=== PATIENT | female | born 2000 | race American Indian/Alaskan Native ===

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

== ENCOUNTER 2020-12-03 15:45 | Emergency (ER) | payer SELFPAY ==
[2020-12-03] MEDS ORDERED: IBUPROFEN 600 MG TAB PO ONE (16:17)
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
[2020-12-03] MEDS ORDERED: SODIUM CHLORIDE 0.9% 1000 ML 1,000 ML IV ONE (16:21)
[2020-12-03 17:30] LABS: BUN/Creatinine Ratio 12; Blood Urea Nitrogen 11 mg/dL (7-17); Calcium 8.4 mg/dL (8.4-10.2); Hemolysis Index 6
[2020-12-03] MEDS ORDERED: ACETAMINOPHEN 500 MG TAB PO STA (17:33)
[2020-12-03 17:34] LABS: Bacteria,Urine 1+ /HPF (Negative); Bilirubin,Urine NEG (Negative); Blood,Urine SM (Negative); Color,Urine Yellow (Yellow); Mucus,Urine 3+ /HPF; Urobilinogen,Urine < 2.0 mg/dL (<2.0)
[2020-12-03 17:34] LABS: Basophils # (Auto) 0.1 K/mm3 (0.0-0.1); Basophils % (Auto) 0.9 % (0.0-1.8); Eosinophils % (Auto) 0.1 % (0.0-4.3); Hematocrit 33.7 % (30.3-42.9); Lymphocytes # (Auto) 1.1 K/mm3 (1.2-5.4); Lymphocytes % (Auto) 14.5 % (13.4-35.0); Mean Corpuscular HGB Conc 33 % (30-34); Mean Corpuscular Volume 84 fl (79-97); Monocytes # (Auto) 1.2 K/mm3 (0.0-0.8); Monocytes % (Auto) 15.5 % (0.0-7.3); Platelet Count 326 K/mm3 (140-440); Red Blood Count 4.02 M/mm3 (3.65-5.03); Red Cell Distribution Width 15.1 % (13.2-15.2)
[2020-12-03 17:39] LABS: HCG Qualitative,Urine Negative (Negative)
--- NOTE | 2020-12-03 17:40 | Emergency Department Report ---
ED General Adult HPI - General Chief complaint: Urogenital-Female Stated complaint: VAGINAL PAINS Time Seen by Provider: 12/03/20 16:07 Source: patient Mode of arrival: Ambulatory Limitations: No Limitations - History of Present Illness Initial comments: 20-year-old -[place] female patient presents with complaints of painful vaginal lesions and vaginal discharge x4 days. She denies any dyspareunia, vaginal bleeding, dysuria/hematuria/urinary frequency, or fever/chills/sweats. She does report lower abdominal pain. No past medical history per patient. She is currently sexually active. No history of genital herpes per -: Sudden Severity scale (0 -10): 10 - Related Data Previous Rx's Medication Instructions Recorded Last Taken Type EPINEPHrine [Epipen 2-Russell] 0.3 mg IM QDAY PRN #2 pack 11/21/17 Unknown Rx Prednisone [predniSONE 5 mg (6-Day 5 mg PO .TAPER #1 tab.ds.pk 11/21/17 Unknown Rx Pack, 21 Tabs)] diphenhydrAMINE [Benadryl CAP] 25 mg PO Q8HR PRN #30 capsule 11/21/17 Unknown Rx Cyclobenzaprine HCl [Flexeril 5 MG 5 mg PO Q8H PRN #15 tab 10/21/19 Unknown Rx TAB] Ibuprofen [Motrin] 600 mg PO Q8H PRN #30 tablet 10/21/19 Unknown Rx Doxycycline Monohydrate 100 mg PO BID 14 Days #28 capsule 12/03/20 Unknown Rx Valacyclovir HCl [Valacyclovir] 1,000 mg PO BID 10 Days #20 tablet 12/03/20 Unknown Rx Allergies Allergy/AdvReac Type Severity Reaction Status Date / Time No Known Allergies Allergy Unverified 11/21/17 04:15 ED Review of Systems ROS: Stated complaint: VAGINAL PAINS Other details as noted in HPI Constitutional: denies: chills, diaphoresis, fever, malaise, weakness Respiratory: denies: cough, shortness of breath Cardiovascular: denies: chest pain Gastrointestinal: abdominal pain. denies: nausea, vomiting, diarrhea Genitourinary: discharge. denies: urgency, dysuria, frequency, hematuria, abnormal menses, dyspareunia Skin: lesions Neurological: denies: headache Hematological/Lymphatic: denies: swollen glands ED Past Medical Hx - Past Medical History Previous Medical History?: No - Surgical History Past Surgical History?: No - Social History Smoking Status: Never Smoker Substance Use Type: None - Medications Home Medications: Home Medications Medication Instructions Recorded Confirmed Last Taken Type EPINEPHrine [Epipen 2-Russell] 0.3 mg IM QDAY PRN #2 pack 11/21/17 Unknown Rx Prednisone [predniSONE 5 mg (6-Day 5 mg PO .TAPER #1 tab.ds.pk 11/21/17 Unknown Rx Pack, 21 Tabs)] diphenhydrAMINE [Benadryl CAP] 25 mg PO Q8HR PRN #30 capsule 11/21/17 Unknown Rx Cyclobenzaprine HCl [Flexeril 5 MG 5 mg PO Q8H PRN #15 tab 10/21/19 Unknown Rx TAB] Ibuprofen [Motrin] 600 mg PO Q8H PRN #30 tablet 10/21/19 Unknown Rx Doxycycline Monohydrate 100 mg PO BID 14 Days #28 capsule 12/03/20 Unknown Rx Valacyclovir HCl [Valacyclovir] 1,000 mg PO BID 10 Days #20 tablet 12/03/20 Unknown Rx ED Physical Exam - General Limitations: No Limitations General appearance: alert, in no apparent distress - Head Head exam: Present: atraumatic, normocephalic - Eye Eye exam: Present: normal appearance. Absent: scleral icterus - Neck Neck exam: Present: normal inspection - Respiratory Respiratory exam: Present: normal lung sounds bilaterally. Absent: respiratory distress - Cardiovascular Cardiovascular Exam: Present: regular rate, normal rhythm - GI/Abdominal GI/Abdominal exam: Present: soft, tenderness (Mild suprapubic), normal bowel sounds. Absent: distended, guarding, rebound, rigid - External exam: Present: lesions (Herpetic lesions noted to the outer area of the vaginal canal and labia minora). Absent: erythema, swelling, bleeding Speculum exam: Present: vaginal discharge, cervical discharge, other (Cervix is friable). Absent: vaginal bleeding Bi-manual exam: Present: cervical motion tendernes - Extremities Exam Extremities exam: Present: full ROM - Back Exam Back exam: Absent: CVA tenderness (R), CVA tenderness (L) - Neurological Exam Neurological exam: Present: alert, oriented X3 - Psychiatric Psychiatric exam: Present: normal affect, normal mood ED Course Vital Signs 12/03/20 12/03/20 12/03/20 16:14 18:10 19:11 Temperature 101.7 F H 98.3 F Pulse Rate 123 H 92 H Respiratory 18 16 15 Rate Blood Pressure 118/68 Blood Pressure 121/81 [Right] O2 Sat by Pulse 98 99 Oximetry ED Medical Decision Making - Lab Data Result diagrams: 12/03/20 16:41 12/03/20 16:41 Lab Results 12/03/20 12/03/20 12/03/20 Range/Units 16:41 16:41 17:05 WBC 7.4 (4.5-11.0) K/mm3 RBC 4.02 (3.65-5.03) M/mm3 Hgb 11.0 (10.1-14.3) gm/dl Hct 33.7 (30.3-42.9) % MCV 84 (79-97) fl MCH 28 (28-32) pg MCHC 33 (30-34) % RDW 15.1 (13.2-15.2) % Plt Count 326 (140-440) K/mm3 Lymph % (Auto) 14.5 (13.4-35.0) % [place] % (Auto) 15.5 H (0.0-7.3) % Eos % (Auto) 0.1 (0.0-4.3) % Baso % (Auto) 0.9 (0.0-1.8) % Lymph # (Auto) 1.1 L (1.2-5.4) K/mm3 [place] # (Auto) 1.2 H (0.0-0.8) K/mm3 Eos # (Auto) 0.0 (0.0-0.4) K/mm3 Baso # (Auto) 0.1 (0.0-0.1) K/mm3 Seg Neutrophils % 69.0 (40.0-70.0) % Seg Neutrophils # 5.1 (1.8-7.7) K/mm3 Sodium 135 L (137-145) mmol/L Potassium 3.2 L (3.6-5.0) mmol/L Chloride 101.7 (98-107) mmol/L Carbon Dioxide 25 (22-30) mmol/L Anion Gap 12 mmol/L BUN 11 (7-17) mg/dL Creatinine 0.9 (0.6-1.2) mg/dL Estimated GFR > 60 ml/min BUN/Creatinine Ratio 12 % Glucose 99 (65-100) mg/dL Lactic Acid (0.7-2.0) mmol/L Calcium 8.4 (8.4-10.2) mg/dL Urine Color Yellow (Yellow) Urine Turbidity Clear (Clear) Urine pH 5.0 (5.0-7.0) Ur Specific Max 1.021 (1.003-1.030) Urine Protein 100 mg/dl (Negative) mg/dL Urine Glucose (UA) Neg (Negative) mg/dL Urine Ketones Tr (Negative) mg/dL Urine Blood Sm (Negative) Urine Nitrite Neg (Negative) Urine Bilirubin Neg (Negative) Urine Urobilinogen < 2.0 (<2.0) mg/dL Ur Leukocyte Esterase Mod (Negative) Urine WBC (Auto) 39.0 H (0.0-6.0) /HPF Urine RBC (Auto) 12.0 (0.0-6.0) /HPF U Epithel Cells (Auto) 1.0 (0-13.0) /HPF Urine Bacteria (Auto) 1+ (Negative) /HPF Urine Mucus 3+ /HPF Urine HCG, Qual Negative (Negative) 12/03/20 Range/Units 17:05 WBC (4.5-11.0) K/mm3 RBC (3.65-5.03) M/mm3 Hgb (10.1-14.3) gm/dl Hct (30.3-42.9) % MCV (79-97) fl MCH (28-32) pg MCHC (30-34) % RDW (13.2-15.2) % Plt Count (140-440) K/mm3 Lymph % (Auto) (13.4-35.0) % [place] % (Auto) (0.0-7.3) % Eos % (Auto) (0.0-4.3) % Baso % (Auto) (0.0-1.8) % Lymph # (Auto) (1.2-5.4) K/mm3 [place] # (Auto) (0.0-0.8) K/mm3 Eos # (Auto) (0.0-0.4) K/mm3 Baso # (Auto) (0.0-0.1) K/mm3 Seg Neutrophils % (40.0-70.0) % Seg Neutrophils # (1.8-7.7) K/mm3 Sodium (137-145) mmol/L Potassium (3.6-5.0) mmol/L Chloride (98-107) mmol/L Carbon Dioxide (22-30) mmol/L Anion Gap mmol/L BUN (7-17) mg/dL Creatinine (0.6-1.2) mg/dL Estimated GFR ml/min BUN/Creatinine Ratio % Glucose (65-100) mg/dL Lactic Acid 0.70 (0.7-2.0) mmol/L Calcium (8.4-10.2) mg/dL Urine Color (Yellow) Urine Turbidity (Clear) Urine pH (5.0-7.0) Ur Specific Max (1.003-1.030) Urine Protein (Negative) mg/dL Urine Glucose (UA) (Negative) mg/dL Urine Ketones (Negative) mg/dL Urine Blood (Negative) Urine Nitrite (Negative) Urine Bilirubin (Negative) Urine Urobilinogen (<2.0) mg/dL Ur Leukocyte Esterase (Negative) Urine WBC (Auto) (0.0-6.0) /HPF Urine RBC (Auto) (0.0-6.0) /HPF U Epithel Cells (Auto) (0-13.0) /HPF Urine Bacteria (Auto) (Negative) /HPF Urine Mucus /HPF Urine HCG, Qual (Negative) - Medical Decision Making 20-year-old -[place] female patient presents with complaints of painful vaginal lesions and vaginal discharge x4 days. She denies any dyspareunia, vaginal bleeding, dysuria/hematuria/urinary frequency, or fever/chills/sweats. She does report lower abdominal pain. No past medical history per patient. She is currently sexually active. No history of genital herpes per Significant greenish vaginal discharge noted on exam with CMT. Patient presented febrile and tachycardic. Lactic acid is normal. Vitals are normal after Tylenol ibuprofen. Wet prep negative for trichomoniasis, however on exam patient had copious green discharge and a friable cervix. Therefore will cover for trichomoniasis with Flagyl 2 g p.o. Will treat for PID with Rocephin and doxycycline. Herpetic lesions also noted on exam. Prescription for valacyclovir given. Patient informed to refrain from any sexual activity for 2 to 3 weeks and to ensure her partner is tested and treated. She is well-appeari ng and stable for discharge home. Patient follow-up with primary care doctor in 3 days. Discussed signs and symptoms that should prompt immediate return to the emergency department in detail with patient who verbalizes understanding. Critical care attestation.: If time is entered above; I have spent that time in minutes in the direct care of this critically ill patient, excluding procedure time. ED Disposition Clinical Impression: PID (acute pelvic inflammatory disease), Trichomonal cervicitis, Genital herpes Disposition: TO HOME OR SELFCARE Is pt being admited?: No Condition: Stable Instructions: Genital Herpes, Trichomoniasis, Pelvic Inflammatory Disease Prescriptions: Doxycycline Monohydrate 100 mg PO BID 14 Days #28 capsule Valacyclovir HCl [Valacyclovir] 1,000 mg PO BID 10 Days #20 tablet Forms: STI Treatment and Prevention
[2020-12-03] MEDS ORDERED: LIDOCAINE-MPF (1%) 10 MG/1 ML VIAL 5 ML INFILTRATI ONE (18:40)
[2020-12-03] MEDS ORDERED: POTASSIUM CHLORIDE ER 20 MEQ TAB PO ONE (18:48)
[2020-12-03 19:15] VITALS: BP 118/68
[2020-12-03] MEDS ORDERED: metroNIDAZOLE 500 MG TAB PO ONE (19:15)
== END 2020-12-03 19:54 | disposition home or self-care (01) ==
LOC: ED 15:45
DX: N73.0 Acute parametritis and pelvic cellulitis (principal); A59.09 Other urogenital trichomoniasis; A60.00 Herpesviral infection of urogenital system, unspecified; Z79.899 Other long term (current) drug therapy
CPT/HCPCS: 36415; 80048; 81001; 81025; 82140; 85025; 87040; 87086; 87210; 87591; 96360; 96372; 99284; J0696; J7030

== ENCOUNTER 2021-01-20 17:45 | Emergency (ER) | payer SELFPAY ==
[2021-01-20] MEDS ORDERED: DICYCLOMINE 20 MG/2 ML INJ IM ONE (22:48)
[2021-01-20] MEDS ORDERED: FAMOTIDINE 20 MG TAB PO ONE (22:48)
[2021-01-20] MEDS ORDERED: ACETAMINOPHEN 500 MG TAB PO ONE (22:48)
[2021-01-20] MEDS ORDERED: ONDANSETRON 4 MG ODT TAB PO ONE (22:48)
[2021-01-20 23:05] LABS: Bacteria,Urine 1+ /HPF (Negative); Bilirubin,Urine SM (Negative); Blood,Urine NEG (Negative); Color,Urine Amber (Yellow); Hyaline Casts,Urine 3 /LPF; Mucus,Urine 3+ /HPF
--- NOTE | 2021-01-20 23:19 | Emergency Department Report ---
ED N/V/D HPI - General Chief complaint: Nausea/Vomiting/Diarrhea Stated complaint: NAUSEA, ABD PAIN, DRY MOUTH, WEAK Source: patient Mode of arrival: Ambulatory Limitations: No Limitations - History of Present Illness Initial comments: Patient is a nulliparous 20-year-old -[place] female with no past medical history presents to the ED with complaint of acute onset persistent nausea and vomiting, diffuse abdominal pain lack of appetite and generalized weakness for the last 2 days, worse in the last 12 hours. Patient states that she has not been able to keep anything down in the last 8 hours. Patient states that no one else at home is had similar symptoms. Patient denies diarrhea, dysuria, urinary frequency and urgency, vaginal bleeding, vaginal discharge, chest pain or shortness of breath, fever, chills, sore throat, headache, dizziness, syncope, seizures, back pain or cough. MD complaint: nausea, vomiting, abdominal pain -: Sudden, days(s) (2) Description of Vomiting: food contents, bilious Associated Abdominal Pain: Yes (Mildly diffuse abdominal pain) Location: diffuse Radiation: none Severity: moderate Pain Scale: 5 Quality: cramping, sharp Consistency: intermittent Improves with: none Worsens with: eating, vomiting Context: possible food poisoning Associated Symptoms: denies other symptoms, myalgias, loss of appetite, malaise, nausea/vomiting. denies: chest pain, cough, diaphoresis, fever/chills, headaches, rash, dysuria, shortness of breath, syncope, weakness - Related Data Previous Rx's Medication Instructions Recorded Last Taken Type EPINEPHrine [Epipen 2-Russell] 0.3 mg IM QDAY PRN #2 pack 11/21/17 Unknown Rx Prednisone [predniSONE 5 mg (6-Day 5 mg PO .TAPER #1 tab.ds.pk 11/21/17 Unknown Rx Pack, 21 Tabs)] diphenhydrAMINE [Benadryl CAP] 25 mg PO Q8HR PRN #30 capsule 11/21/17 Unknown Rx Cyclobenzaprine HCl [Flexeril 5 MG 5 mg PO Q8H PRN #15 tab 10/21/19 Unknown Rx TAB] Doxycycline Monohydrate 100 mg PO BID 14 Days #28 capsule 12/03/20 Unknown Rx Valacyclovir HCl [Valacyclovir] 1,000 mg PO BID 10 Days #20 tablet 06/24/21 Unknown Rx Dicyclomine [Bentyl] 20 mg PO Q6H PRN #24 tablet 01/21/21 Unknown Rx Famotidine [Pepcid] 20 mg PO BID #60 tablet 01/21/21 Unknown Rx Ibuprofen [Motrin 600 MG tab] 600 mg PO Q8H PRN #20 tablet 01/21/21 Unknown Rx Ondansetron [Zofran Odt] 4 mg PO Q6HR PRN #20 tab.rapdis 01/21/21 Unknown Rx Allergies Allergy/AdvReac Type Severity Reaction Status Date / Time No Known Allergies Allergy Verified 01/20/21 18:53 ED Review of Systems ROS: Stated complaint: NAUSEA, ABD PAIN, DRY MOUTH, WEAK Other details as noted in HPI Constitutional: malaise. denies: chills, fever Eyes: denies: eye pain, eye discharge, vision change ENT: denies: ear pain, throat pain Respiratory: denies: cough, shortness of breath, wheezing Cardiovascular: denies: chest pain, palpitations Endocrine: no symptoms reported Gastrointestinal: abdominal pain, nausea, vomiting. denies: diarrhea Genitourinary: denies: urgency, dysuria, discharge, abnormal menses, dyspareunia Musculoskeletal: denies: back pain, joint swelling, arthralgia Skin: denies: rash, lesions Neurological: denies: headache, weakness, paresthesias Psychiatric: denies: anxiety, depression Hematological/Lymphatic: denies: easy bleeding, easy bruising ED Past Medical Hx - Past Medical History Previous Medical History?: No - Surgical History Past Surgical History?: No - Social History Smoking Status: Never Smoker Substance Use Type: None - Medications Home Medications: Home Medications Medication Instructions Recorded Confirmed Last Taken Type EPINEPHrine [Epipen 2-Russell] 0.3 mg IM QDAY PRN #2 pack 11/21/17 Unknown Rx Prednisone [predniSONE 5 mg (6-Day 5 mg PO .TAPER #1 tab.ds.pk 11/21/17 Unknown Rx Pack, 21 Tabs)] diphenhydrAMINE [Benadryl CAP] 25 mg PO Q8HR PRN #30 capsule 11/21/17 Unknown Rx Cyclobenzaprine HCl [Flexeril 5 MG 5 mg PO Q8H PRN #15 tab 10/21/19 Unknown Rx TAB] Doxycycline Monohydrate 100 mg PO BID 14 Days #28 capsule 12/03/20 Unknown Rx Valacyclovir HCl [Valacyclovir] 1,000 mg PO BID 10 Days #20 tablet 12/03/20 Unknown Rx Dicyclomine [Bentyl] 20 mg PO Q6H PRN #24 tablet 01/21/21 Unknown Rx Famotidine [Pepcid] 20 mg PO BID #60 tablet 01/21/21 Unknown Rx Ibuprofen [Motrin 600 MG tab] 600 mg PO Q8H PRN #20 tablet 01/21/21 Unknown Rx Ondansetron [Zofran Odt] 4 mg PO Q6HR PRN #20 tab.rapdis 01/21/21 Unknown Rx ED Physical Exam - General Limitations: No Limitations General appearance: alert, in no apparent distress - Head Head exam: Present: atraumatic, normocephalic, normal inspection - Eye Eye exam: Present: normal appearance, PERRL, EOMI Pupils: Present: normal accommodation - ENT ENT exam: Present: normal exam, normal orophraynx, mucous membranes moist, TM's normal bilaterally, normal external ear exam - Neck Neck exam: Present: normal inspection, full ROM - Respiratory Respiratory exam: Present: normal lung sounds bilaterally. Absent: respiratory distress, wheezes, rales, rhonchi, chest wall tenderness, accessory muscle use, decreased breath sounds - Cardiovascular Cardiovascular Exam: Present: regular rate, normal rhythm, normal heart sounds. Absent: systolic murmur, diastolic murmur, rubs, gallop - GI/Abdominal GI/Abdominal exam: Present: soft, normal bowel sounds. Absent: distended, tenderness, guarding, rebound, hyperactive bowel sounds, hypoactive bowel sounds, organomegaly, mass - Extremities Exam Extremities exam: Present: normal inspection, full ROM, normal capillary refill - Back Exam Back exam: Present: normal inspection, full ROM. Absent: tenderness, CVA tenderness (R), CVA tenderness (L), muscle spasm, paraspinal tenderness, vertebral tenderness - Neurological Exam Neurological exam: Present: alert, oriented X3, CN II-XII intact, normal gait, reflexes normal - Psychiatric Psychiatric exam: Present: normal affect, normal mood - Skin Skin exam: Present: warm, dry, intact, normal color. Absent: rash ED Course Vital Signs 01/20/21 01/20/21 18:52 23:22 Temperature 98.3 F Pulse Rate 99 H Respiratory 18 20 Rate Blood Pressure 115/80 [Right] O2 Sat by Pulse 99 Oximetry ED Medical Decision Making - Lab Data Result diagrams: 01/20/21 23:09 01/20/21 23:09 - Medical Decision Making This is a nulliparous 20-year-old -[place] female with no past medical history presents to the ED with complaint of acute onset persistent nausea and vomiting, diffuse abdominal pain lack of appetite and generalized weakness for the last 2 days, worse in the last 12 hours. Patient states that she has not been able to keep anything down in the last 8 hours. Patient states that no one else at home is had similar symptoms. In the ED, patient is alert and oriented x3 and is not in any distress. Patient is hemodynamically stable. Patient was treated for nausea and vomiting, also given antacids and pain medications. Lab test results were reviewed and are all nonactionable except for mild hypokalemia of 3.3 mmol/L, and for which the patient was treated with oral potassium chloride 40 mEq p.o. x1. On reevaluation, patient felt better, patient passed oral fluid challenge in the ED, the patient's pain, nausea and vomiting were controlled medications. Patient was discharged home on medications for pain and antiemetics and advised to maintain a clear liquid diet for 12 to 24 hours, while taking medications as prescribed. Patient was advised to follow-up with her primary care physician in 5 to 7 days for reevaluation or return to the ED immediately if symptoms get worse. - Differential Diagnosis Viral gastroenteritis; UTI; GERD; ovarian cyst; Critical care attestation.: If time is entered above; I have spent that time in minutes in the direct care of this critically ill patient, excluding procedure time. ED Disposition Clinical Impression: Abdominal pain, generalized, Nausea and vomiting in adult patient, Viral gastroenteritis Disposition: DC-01 TO HOME OR SELFCARE Is pt being admited?: No Does the pt Need Aspirin: No Condition: Stable Instructions: Viral Gastroenteritis, Adult, [id number], Abdominal Pain, Adult, [id number], Nausea and Vomiting, Adult, [id number] Additional Instructions: All lab test results were reviewed and are all nonactionable. Therefore maintain a clear liquid diet for 1224 hrs., take medications with food, drink plenty of fluids and follow-up with your primary care physician in 5 to 7 days for reevaluation or return to the ED immediately if symptoms get worse. Prescriptions: Dicyclomine [Bentyl] 20 mg PO Q6H PRN #24 tablet PRN Reason: Abdominal pain Ibuprofen [Motrin 600 MG tab] 600 mg PO Q8H PRN #20 tablet PRN Reason: Pain Famotidine [Pepcid] 20 mg PO BID #60 tablet Ondansetron [Zofran Odt] 4 mg PO Q6HR PRN #20 tab.rapdis PRN Reason: Nausea Referrals: [facility] [Provider Group] - 3-5 Days Forms: Work/School Release Form(ED) Time of Disposition: 00:47 Print Language: MALTESE
[2021-01-20 23:41] LABS: Ictotest,Urine Negative (Negative)
[2021-01-20 23:58] LABS: Basophils % (Auto) 0.4 % (0.0-1.8); Eosinophils % (Auto) 0.6 % (0.0-4.3); Hematocrit 34.2 % (30.3-42.9); Hemoglobin 11.2 gm/dl (10.1-14.3); Lymphocytes % (Auto) 17.9 % (13.4-35.0); Mean Corpuscular HGB Conc 33 % (30-34); Mean Corpuscular Volume 84 fl (79-97); Monocytes # (Auto) 0.6 K/mm3 (0.0-0.8); Monocytes % (Auto) 10.4 % (0.0-7.3); Platelet Count 339 K/mm3 (140-440); Red Blood Count 4.06 M/mm3 (3.65-5.03); Red Cell Distribution Width 14.8 % (13.2-15.2)
[2021-01-21 00:19] LABS: Alanine Aminotransferase 6 units/L (7-56); Albumin 4.1 g/dL (3.9-5); BUN/Creatinine Ratio 13; Blood Urea Nitrogen 12 mg/dL (7-17); Calcium 8.6 mg/dL (8.4-10.2); Hemolysis Index 0
[2021-01-21] MEDS ORDERED: POTASSIUM CHLORIDE ER 20 MEQ TAB PO ONE (00:36)
[2021-01-21] MEDS ORDERED: KETOROLAC 30 MG/1 ML INJ IM ONE (00:46)
[2021-01-21] MEDS ORDERED: PROMETHAZINE 25 MG TAB PO ONE (00:56)
[2021-01-21 02:51] VITALS: BP 115/67
== END 2021-01-21 03:00 | disposition home or self-care (01) ==
LOC: ED 17:45
DX: A08.4 Viral intestinal infection, unspecified (principal); R11.2 Nausea with vomiting, unspecified; R10.84 Generalized abdominal pain; Z79.899 Other long term (current) drug therapy
CPT/HCPCS: 36415; 80053; 81001; 83690; 84703; 85025; 99283; J0500; J1885; Q0169; Q0162

== ENCOUNTER 2021-03-15 12:40 | Emergency (ER) | payer SELFPAY ==
[2021-03-15 13:56] LABS: Basophils # (Auto) 0.1 K/mm3 (0.0-0.1); Basophils % (Auto) 1.1 % (0.0-1.8); Eosinophils # (Auto) 0.2 K/mm3 (0.0-0.4); Eosinophils % (Auto) 2.7 % (0.0-4.3); Hematocrit 32.3 % (30.3-42.9); Hemoglobin 10.4 gm/dl (10.1-14.3); Lymphocytes # (Auto) 1.2 K/mm3 (1.2-5.4); Lymphocytes % (Auto) 14.4 % (13.4-35.0); Mean Corpuscular HGB Conc 32 % (30-34); Mean Corpuscular Volume 83 fl (79-97); Monocytes # (Auto) 0.6 K/mm3 (0.0-0.8); Monocytes % (Auto) 7.1 % (0.0-7.3); Platelet Count 393 K/mm3 (140-440); Red Cell Distribution Width 15.4 % (13.2-15.2)
[2021-03-15 14:06] LABS: Alanine Aminotransferase 5 units/L (7-56); Albumin 3.9 g/dL (3.9-5); Blood Urea Nitrogen 8 mg/dL (7-17); Hemolysis Index 0
[2021-03-15 14:31] LABS: BUN/Creatinine Ratio 11
--- NOTE | 2021-03-15 15:04 | Ultrasound Report ---
TRANSABDOMINAL AND TRANSVAGINAL OB PELVIC ULTRASOUND INDICATION / CLINICAL INFORMATION: Pelvic pain and vaginal spotting. COMPARISON: None available. FINDINGS: Transabdominal: The uterus measures approximately 9.9 x 5.9 x 6.9 cm. There is an intrauterine gestat ional sac with a pole measuring 6 weeks 1 day. The heart rate is under 14 bpm. I see no e vidence of implantation hemorrhage. The left ovary measures 4.5 x 2.4 x 4.6 cm. The right ovary measu res 3.7 1.8 x 3.8 cm. No free fluid is seen. Transvaginal: There is an intrauterine gestational sac. There is a pole measuring 6 weeks 3 day s by crown-rump length. The heart rate is 116 bpm. There is no evidence of implantation hemorrh age. The left ovary measures 4.5 x 1.9 x 3.5 cm and contains a 1.5 cm corpus luteal cyst. The right o vary measures 3.7 x 1.5 x 3.5 cm. There is normal blood flow to both ovaries on Doppler exam. There i s a mild amount of free fluid in the cul-de-sac. IMPRESSION: 1. Single viable 6 week 3 day intrauterine . 2. 1.5 cm corpus luteal cyst in the left ovary. 3. Small amount of free fluid in the cul-de-sac. No evidence of an extraovarian mass is seen to candace st ectopic . Signer Name: Zeferino Min MD Signed: 03/15/2021 3:00 PM Workstation Name: [email or web address]
--- NOTE | 2021-03-15 15:59 | Emergency Department Report ---
ED General Adult HPI - General Chief complaint: Abdominal Pain Stated complaint: DIZZINESS/ABD CRAMPS Time Seen by Provider: 03/15/21 12:56 Source: patient Mode of arrival: Ambulatory Limitations: No Limitations - History of Present Illness Initial comments: 20-year-old -[place] female patient presents with complaints of vaginal bleeding in starting this morning. Patient states she tested positive for about 2 weeks ago. She states she noticed a little blood upon wiping this morning. She denies any dysuria/hematuria/urinary frequency, dyspareunia, fever/chills/sweats, stool changes. She reports some mild abdominal cramping but denies any currently. She also denies dyspareunia or vaginal discharge. No prior medical history per patient. She states she is G1, . Patient has an appointment scheduled with her WORKDAY DIRECTOR on 03/29/2021. - Related Data Previous Rx's Medication Instructions Recorded Last Taken Type EPINEPHrine [Epipen 2-Russell] 0.3 mg IM QDAY PRN #2 pack 11/21/17 Unknown Rx Prednisone [predniSONE 5 mg (6-Day 5 mg PO .TAPER #1 tab.ds.pk 11/21/17 Unknown Rx Pack, 21 Tabs)] diphenhydrAMINE [Benadryl CAP] 25 mg PO Q8HR PRN #30 capsule 11/21/17 Unknown Rx Cyclobenzaprine HCl [Flexeril 5 MG 5 mg PO Q8H PRN #15 tab 10/21/19 Unknown Rx TAB] Doxycycline Monohydrate 100 mg PO BID 14 Days #28 capsule 12/03/20 Unknown Rx Valacyclovir HCl [Valacyclovir] 1,000 mg PO BID 10 Days #20 tablet 12/03/20 Unknown Rx Dicyclomine [Bentyl] 20 mg PO Q6H PRN #24 tablet 01/21/21 Unknown Rx Famotidine [Pepcid] 20 mg PO BID #60 tablet 01/21/21 Unknown Rx Ibuprofen [Motrin 600 MG tab] 600 mg PO Q8H PRN #20 tablet 01/21/21 Unknown Rx Ondansetron [Zofran Odt] 4 mg PO Q6HR PRN #20 tab.rapdis 01/21/21 Unknown Rx Allergies Allergy/AdvReac Type Severity Reaction Status Date / Time No Known Allergies Allergy Verified 08/11/21 18:53 ED Review of Systems ROS: Stated complaint: DIZZINESS/ABD CRAMPS Other details as noted in HPI Constitutional: denies: chills, diaphoresis, fever, malaise, weakness ENT: denies: throat pain Respiratory: denies: cough, shortness of breath Cardiovascular: denies: chest pain Gastrointestinal: as per HPI. denies: nausea, vomiting, diarrhea, constipation Genitourinary: abnormal menses. denies: urgency, dysuria, frequency, hematuria, discharge, dyspareunia Skin: denies: rash Neurological: denies: headache ED Past Medical Hx - Past Medical History Previous Medical History?: No - Surgical History Past Surgical History?: No - Social History Smoking Status: Never Smoker - Medications Home Medications: Home Medications Medication Instructions Recorded Confirmed Last Taken Type EPINEPHrine [Epipen 2-Russell] 0.3 mg IM QDAY PRN #2 pack 11/21/17 Unknown Rx Prednisone [predniSONE 5 mg (6-Day 5 mg PO .TAPER #1 tab.ds.pk 11/21/17 Unknown Rx Pack, 21 Tabs)] diphenhydrAMINE [Benadryl CAP] 25 mg PO Q8HR PRN #30 capsule 11/21/17 Unknown Rx Cyclobenzaprine HCl [Flexeril 5 MG 5 mg PO Q8H PRN #15 tab 10/21/19 Unknown Rx TAB] Doxycycline Monohydrate 100 mg PO BID 14 Days #28 capsule 12/03/20 Unknown Rx Valacyclovir HCl [Valacyclovir] 1,000 mg PO BID 10 Days #20 tablet 12/03/20 Unknown Rx Dicyclomine [Bentyl] 20 mg PO Q6H PRN #24 tablet 01/21/21 Unknown Rx Famotidine [Pepcid] 20 mg PO BID #60 tablet 01/21/21 Unknown Rx Ibuprofen [Motrin 600 MG tab] 600 mg PO Q8H PRN #20 tablet 01/21/21 Unknown Rx Ondansetron [Zofran Odt] 4 mg PO Q6HR PRN #20 tab.rapdis 01/21/21 Unknown Rx ED Physical Exam - General Limitations: No Limitations General appearance: alert, in no apparent distress - Head Head exam: Present: atraumatic, normocephalic - Eye Eye exam: Present: normal appearance. Absent: scleral icterus - Respiratory Respiratory exam: Absent: respiratory distress - Cardiovascular Cardiovascular Exam: Present: regular rate, normal rhythm - GI/Abdominal GI/Abdominal exam: Present: soft, normal bowel sounds. Absent: distended, tenderness, guarding, rebound, rigid - Extremities Exam Extremities exam: Present: full ROM - Back Exam Back exam: Absent: CVA tenderness (R), CVA tenderness (L) - Neurological Exam Neurological exam: Present: alert, oriented X3 - Psychiatric Psychiatric exam: Present: normal affect, normal mood - Skin Skin exam: Present: warm, dry, intact, normal color. Absent: rash ED Course Vital Signs 03/15/21 03/15/21 03/15/21 12:45 12:47 16:36 Temperature 98.9 F Pulse Rate 97 H 64 Respiratory 18 15 Rate Blood Pressure 128/77 130/89 O2 Sat by Pulse 99 99 Oximetry ED Medical Decision Making - Lab Data Result diagrams: 03/15/21 13:06 03/15/21 13:06 Lab Results 03/15/21 03/15/21 03/15/21 Range/Units 12:50 13:06 13:06 WBC 8.1 (4.5-11.0) K/mm3 RBC 3.90 (3.65-5.03) M/mm3 Hgb 10.4 (10.1-14.3) gm/dl Hct 32.3 (30.3-42.9) % MCV 83 (79-97) fl MCH 27 L (28-32) pg MCHC 32 (30-34) % RDW 15.4 H (13.2-15.2) % Plt Count 393 (140-440) K/mm3 Lymph % (Auto) 14.4 (13.4-35.0) % Coles % (Auto) 7.1 (0.0-7.3) % Eos % (Auto) 2.7 (0.0-4.3) % Baso % (Auto) 1.1 (0.0-1.8) % Lymph # (Auto) 1.2 (1.2-5.4) K/mm3 Coles # (Auto) 0.6 (0.0-0.8) K/mm3 Eos # (Auto) 0.2 (0.0-0.4) K/mm3 Baso # (Auto) 0.1 (0.0-0.1) K/mm3 Seg Neutrophils % 74.7 H (40.0-70.0) % Seg Neutrophils # 6.1 (1.8-7.7) K/mm3 Sodium 137 (137-145) mmol/L Potassium 3.5 L (3.6-5.0) mmol/L Chloride 101.6 (98-107) mmol/L Carbon Dioxide 22 (22-30) mmol/L Anion Gap 17 mmol/L BUN 8 (7-17) mg/dL Creatinine 0.7 (0.6-1.2) mg/dL Estimated GFR > 60 ml/min BUN/Creatinine Ratio 11 % Glucose 84 (65-100) mg/dL Calcium 9.0 (8.4-10.2) mg/dL Total Bilirubin 0.40 (0.1-1.2) mg/dL AST 9 (5-40) units/L ALT 5 L (7-56) units/L Alkaline Phosphatase 60 (35-129) units/L Total Protein 7.5 (6.3-8.2) g/dL Albumin 3.9 (3.9-5) g/dL Albumin/Globulin Ratio 1.1 % HCG, Quant (0-4) mIU/mL Urine Color (Yellow) Urine Turbidity (Clear) Urine pH (5.0-7.0) Ur Specific [place] (1.003-1.030) Urine Protein (Negative) mg/dL Urine Glucose (UA) (Negative) mg/dL Urine Ketones (Negative) mg/dL Urine Blood (Negative) Urine Nitrite (Negative) Urine Bilirubin (Negative) Urine Urobilinogen (<2.0) mg/dL Ur Leukocyte Esterase (Negative) Urine WBC (Auto) (0.0-6.0) /HPF Urine RBC (Auto) (0.0-6.0) /HPF U Epithel Cells (Auto) (0-13.0) /HPF Urine Mucus /HPF Blood Type O POSITIVE 03/15/21 03/15/21 Range/Units 13:06 Unknown WBC (4.5-11.0) K/mm3 RBC (3.65-5.03) M/mm3 Hgb (10.1-14.3) gm/dl Hct (30.3-42.9) % MCV (79-97) fl MCH (28-32) pg MCHC (30-34) % RDW (13.2-15.2) % Plt Count (140-440) K/mm3 Lymph % (Auto) (13.4-35.0) % Coles % (Auto) (0.0-7.3) % Eos % (Auto) (0.0-4.3) % Baso % (Auto) (0.0-1.8) % Lymph # (Auto) (1.2-5.4) K/mm3 Coles # (Auto) (0.0-0.8) K/mm3 Eos # (Auto) (0.0-0.4) K/mm3 Baso # (Auto) (0.0-0.1) K/mm3 Seg Neutrophils % (40.0-70.0) % Seg Neutrophils # (1.8-7.7) K/mm3 Sodium (137-145) mmol/L Potassium (3.6-5.0) mmol/L Chloride (98-107) mmol/L Carbon Dioxide (22-30) mmol/L Anion Gap mmol/L BUN (7-17) mg/dL Creatinine (0.6-1.2) mg/dL Estimated GFR ml/min BUN/Creatinine Ratio % Glucose (65-100) mg/dL Calcium (8.4-10.2) mg/dL Total Bilirubin (0.1-1.2) mg/dL AST (5-40) units/L ALT (7-56) units/L Alkaline Phosphatase (35-129) units/L Total Protein (6.3-8.2) g/dL Albumin (3.9-5) g/dL Albumin/Globulin Ratio % HCG, Quant 78055 H (0-4) mIU/mL Urine Color Yellow (Yellow) Urine Turbidity Clear (Clear) Urine pH 6.0 (5.0-7.0) Ur Specific [place] 1.010 (1.003-1.030) Urine Protein <15 mg/dl (Negative) mg/dL Urine Glucose (UA) Neg (Negative) mg/dL Urine Ketones Neg (Negative) mg/dL Urine Blood Neg (Negative) Urine Nitrite Neg (Negative) Urine Bilirubin Neg (Negative) Urine Urobilinogen < 2.0 (<2.0) mg/dL Ur Leukocyte Esterase Tr (Negative) Urine WBC (Auto) 4.0 (0.0-6.0) /HPF Urine RBC (Auto) 2.0 (0.0-6.0) /HPF U Epithel Cells (Auto) 1.0 (0-13.0) /HPF Urine Mucus 1+ /HPF Blood Type - Radiology Data Radiology results: report reviewed TRANSABDOMINAL AND TRANSVAGINAL OB PELVIC ULTRASOUND INDICATION / CLINICAL INFORMATION: Pelvic pain and vaginal spotting. COMPARISON: None available. FINDINGS: Transabdominal: The uterus measures approximately 9.9 x 5.9 x 6.9 cm. There is an intrauterine gestational sac with a pole measuring 6 weeks 1 day. The heart rate is under 14 bpm. I see no evidence of implantation hemorrhage. The left ovary measures 4.5 x 2.4 x 4.6 cm. The right ovary measures 3.7 1.8 x 3.8 cm. No free fluid is seen. Transvaginal: There is an intrauterine gestational sac. There is a pole measuring 6 weeks 3 days by crown-rump length. The heart rate is 116 bpm. There is no evidence of implantation hemorrhage. The left ovary measures 4.5 x 1.9 x 3.5 cm and contains a 1.5 cm corpus luteal cyst. The right ovary measures 3.7 x 1.5 x 3.5 cm. There is normal blood flow to both ovaries on Doppler exam. There is a mild amount of free fluid in the cul-de-sac. IMPRESSION: 1. Single viable 6 week 3 day intrauterine . 2. 1.5 cm corpus luteal cyst in the left ovary. 3. Small amount of free fluid in the cul-de-sac. No evidence of an extraovarian mass is seen to suggest ectopic . - Medical Decision Making 20-year-old -[place] female patient presents with complaints of vaginal bleeding in starting this morning. Patient states she tested positive for about 2 weeks ago. She states she noticed a little blood upon wiping this morning. She denies any dysuria/hematuria/urinary frequency, dyspareunia, fever/chills/sweats, stool changes. She reports some mild abdominal cramping but denies any currently. She also denies dyspareunia or vaginal discharge. No prior medical history per patient. She states she is G1, . Patient has an appointment scheduled with her WORKDAY DIRECTOR on 03/29/2021. Ultrasound shows 6-week 3-day IUP and mild free pelvic fluid. Patient denies dyspareunia, vaginal discharge, urinary frequency/dysuria/hematuria, or concern for STI. No abdominal tenderness to palpation on exam. UA is negative for any signs of infection. She is well-appearing and continues to deny any pain. No acute abnormalities on CBC or CMP. Patient stable for discharge home with follow-up with WORKDAY DIRECTOR in 3 to 5 days. Strict return precautions were discussed in detail with patient who verbalizes understanding. Critical care attestation.: If time is entered above; I have spent that time in minutes in the direct care of this critically ill patient, excluding procedure time. ED Disposition Clinical Impression: 6 weeks gestation of , Vaginal bleeding during Disposition: 01 HOME / SELF CARE / HOMELESS Is pt being admited?: No Condition: Stable Instructions: Vaginal Bleeding During , First Trimester, Activity Restriction During , Abdominal Pain (ED) Referrals: [facility] [Provider Group] - 3-5 Days RACHID MARSH MD [Staff Physician] - 3-5 Days Forms: Work/School Release Form(ED)
[2021-03-15 16:39] LABS: Bilirubin,Urine NEG (Negative); Blood,Urine NEG (Negative); Color,Urine Yellow (Yellow); Mucus,Urine 1+ /HPF; Protein,Urine <15 mg/dL mg/dL (Negative); Urobilinogen,Urine < 2.0 mg/dL (<2.0)
[2021-03-15 17:46] VITALS: BP 125/79
== END 2021-03-15 17:46 | disposition home or self-care (01) ==
LOC: ED 12:40
DX: O20.9 Hemorrhage in early pregnancy, unspecified (principal); Z3A.01 Less than 8 weeks gestation of pregnancy; Z79.899 Other long term (current) drug therapy
CPT/HCPCS: 36415; 76801; 76817; 80053; 81001; 84702; 85025; 86900; 86901; 99284